=== PATIENT | female | born 1960 ===

== ENCOUNTER 2017-02-20 14:54 | Outpatient (CLI) | payer OTHER | END 2017-02-20 14:55 | disposition home or self-care (01) | LOC: LABHHL 14:54 | PROVIDERS: ATTEND Internal Medicine Gastroenterology | DX: Z12.11 Encounter for screening for malignant neoplasm of colon (principal); K27.9 Peptic ulcer, site unspecified, unspecified as acute or chronic, without hemorrhage or perforation; B96.81 Helicobacter pylori [H. pylori] as the cause of diseases classified elsewhere; R10.13 Epigastric pain | CPT/HCPCS: 88305; 88342 ==